=== PATIENT | male | born 1990 | race Two or more races ===

== ENCOUNTER 2020-10-26 13:27 | Emergency (ER) | payer SELFPAY ==
[~2020-10-26] VITALS: Ht 170.2 cm; Wt 72.6 kg
[2020-10-26] MEDS ORDERED: DiphenhydrAMINE 50mg/ml Inj IM ONE (13:30)
[2020-10-26] MEDS ORDERED: Haloperidol 5mg/ml Inj IM ONE (13:30)
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
--- NOTE | 2020-10-26 14:08 | NUR ---
ED Nurse Note:blood and urine sent to labs
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
[2020-10-26 14:14] VITALS: BP 148/72
[2020-10-26 14:42] LABS: ANION GAP 9 mmol/L (5-15); BLOOD UREA NITROGEN 21 mg/dL (7-18); CALCIUM 8.7 MG/DL (8.5-10.1); CARBON DIOXIDE 27 MMOL/L (21-32); CHLORIDE 103 MMOL/L (98-107); CREATININE 1.1 MG/DL (0.55-1.30); POTASSIUM 3.2 MMOL/L (3.5-5.1); SODIUM 139 MMOL/L (136-145)
[2020-10-26 14:55] LABS: ALANINE AMINOTRANSFERASE 46 U/L (12-78); ALBUMIN 3.6 G/DL (3.4-5.0); ALBUMIN/GLOBULIN RATIO 1.1 (1.0-2.7); ALKALINE PHOSPHATASE 81 U/L (46-116); ASPARTATE AMINO TRANSFERASE 31 U/L (15-37); BILIRUBIN,TOTAL 1.5 MG/DL (0.2-1.0); CREATINE KINASE 396 U/L (26-308)
[2020-10-26 14:56] LABS: BILIRUBIN,DIRECT 0.3 MG/DL (0.0-0.3)
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
--- NOTE | 2020-10-26 15:26 | NUR ---
ED Nurse Note: pt attempted to urinate in urinal, unable at this time
[2020-10-26 15:28] LABS: HEMATOCRIT 42.5 % (42.0-52.0); HEMOGLOBIN 13.3 G/DL (14.2-18.0); MEAN CORPUSCULAR VOLUME 63 FL (80-99); PLATELET COUNT 228 K/UL (150-450); RED BLOOD COUNT 6.73 M/UL (4.70-6.10); RED CELL DISTRIBUTION WIDTH 14.5 % (11.6-14.8); WHITE BLOOD COUNT 14.7 K/UL (4.8-10.8)
[2020-10-26 15:36] LABS: BASOPHILS % (AUTO) 0.6 % (0.0-2.0); EOSINOPHILS % (AUTO) 0.3 % (0.0-3.0); LYMPHOCYTES % (AUTO) 4.5 % (20.0-45.0); MONOCYTES % (AUTO) 9.4 % (1.0-10.0); NEUTROPHILS % (AUTO) 85.2 % (45.0-75.0)
--- NOTE | 2020-10-26 16:02 | NUR ---
ED Nurse Note:pt requested to speak with ERMD. He wants to go home, spoke with him and stated he could after he receives the fluid. pt stated ok.
--- NOTE | 2020-10-26 16:34 | NUR ---
ER DISCHARGE NOTE: Patient is cleared to be discharged per ERMD, pt is aox4, on room air, with stable vital signs. pt was given dc instructions, pt was able to verbalize understanding, pt id band and iv site removed without complications. pt is able to ambulate with steady gait. pt took all belongings.
--- NOTE | 2020-10-26 16:35 | NUR ---
ED Nurse Note:this pt did not need to be restrained
--- NOTE | 2020-10-27 14:59 | Cardiology Report ---
APPROVED REPORT EKG Measurement Heart [id number] [place] [id number] <Conclusion> Sinus tachycardia Otherwise normal ECG
== END 2020-10-26 16:36 | disposition home or self-care (01) ==
LOC: EDBD 13:27 → EMR 13:50
DX: R46.89 Other symptoms and signs involving appearance and behavior (principal); T65.894A Toxic effect of other specified substances, undetermined, initial encounter; Y92.9 Unspecified place or not applicable
CPT/HCPCS: 36415; 80053; 80307; 82248; 82550; 85025; 93005; 96360; 96372; 99284; G0480; J1200; J1630; J7030